=== PATIENT | male | born 1945 | race Caucasian/White ===

== ENCOUNTER 2018-11-11 05:45 | Outpatient (CLI) | payer MEDICARE ==
--- NOTE | 2018-11-11 09:12 | XRAY Report ---
Reason: thoracic outlet syndrome Procedure Date: 11/11/2018 Accession Number: [id number] / [id number] Procedure: XR - Chest 2 View X-Ray CPT Code: 29907 FULL RESULT: EXAM: CHEST RADIOGRAPHY EXAM DATE: 11/11/2018 06:20 AM. CLINICAL HISTORY: Thoracic outlet syndrome. COMPARISON: XR CERVICAL SPINE MIN 4 VIEWS 02/08/2010 11:22 AM. TECHNIQUE: 2 views. FINDINGS: Lungs/Pleura: No focal opacities evident. No pleural effusion. No pneumothorax. Normal volumes. Mediastinum: Heart and mediastinal contours are unremarkable. Other: Anterior fixation plate lower cervical thoracic junction. Prior resection of the first ribs. IMPRESSION: Normal 2-view chest radiography. [facility]
== END 2018-11-11 05:46 | disposition home or self-care (01) ==
LOC: DI 05:45
PROVIDERS: ATTEND Specialist
DX: G54.0 Brachial plexus disorders (principal); R07.89 Other chest pain
CPT/HCPCS: 71046

== ENCOUNTER 2022-12-25 08:00 | Outpatient (CLI) | payer MEDICARE ==
--- NOTE | 2022-12-25 14:02 | XRAY Report ---
PROCEDURE: Elbow 3 View LT INDICATIONS: CONTUSION LEFT ELBOW TECHNIQUE: 4 views of the elbow were acquired. COMPARISON: None FINDINGS: Bones: No fractures or dislocations. Osteoarthritic changes are noted throughout elbow joints. No s uspicious bony lesions. Soft tissues: Mild anterior fat pad displacement is seen suggestive of small joint effusion.. No ky picious soft tissue calcifications. Mild dorsal elbow soft tissue swelling over olecranon is seen. IMPRESSION: No definite acute elbow fracture or dislocation. Moderate elbow joint osteoarthritis. Small joint eff usion and mild dorsal elbow soft tissue swelling. Finding likely represent soft tissue contusion. If indicated, follow-up study in 7-10 days can be done for evaluation of occult fracture. Reviewed by: Paco Hoffman MD on 12/25/2022 2:01 PM PST Approved by: Paco Hoffman MD on 12/25/2022 2:01 PM PST Station ID: [id number]
== END 2022-12-25 23:59 | disposition home or self-care (01) ==
LOC: DI.S 08:00
PROVIDERS: ATTEND Physician Assistant Medical
DX: S50.02XA Contusion of left elbow, initial encounter (principal); M19.022 Primary osteoarthritis, left elbow; M25.422 Effusion, left elbow